=== PATIENT | female | born 1965 | race African-American/Black ===

== ENCOUNTER 2017-09-07 01:55 | Outpatient (CLI) | payer OTHER ==
--- NOTE | 2017-09-07 13:42 | MMO ---
BASELINE SCREENING MAMMOGRAPHY: DATE: 09/07/17. COMPARISON: None. HISTORY: Baseline screening study. FINDINGS: The patient's mammogram is interpreted with the assistance of computer-aided detection. The breast parenchyma is composed of scattered fibroglandular densities. There is a questionable focal asymmetry seen on left MLO imaging, superior on MLO imaging and middle depth. No concerning calcification seen. IMPRESSION: BI-RADS 0 - incomplete. Further imaging assessment advised. Focal asymmetry within the left breast on MLO imaging. Recommend left diagnostic mammogram and focus ed breast ultrasound as clinically indicated. POS: TONY
== END 2017-09-07 01:56 | disposition home or self-care (01) ==
LOC: SCSMAMMO 01:55
PROVIDERS: ATTEND Family Medicine
DX: Z12.31 Encounter for screening mammogram for malignant neoplasm of breast (principal); N64.89 Other specified disorders of breast
CPT/HCPCS: 77067; G0202

== ENCOUNTER 2017-09-14 10:00 | Outpatient (CLI) | payer OTHER ==
--- NOTE | 2017-09-14 11:47 | MMO ---
LEFT UNILATERAL DIAGNOSTIC MAMMOGRAM: HISTORY: This 52-year-old female returns for additional views of the left breast to evaluate an asymmetric den sity seen only on the left MLO projection. 90-degree mediolateral, repeat MLO, and focal MAG compression MLO views are performed. With these additional views, this asymmetric density of concern appears to compress out. No evidence for malignancy. IMPRESSION: BI-RADS category 2, benign findings. Asymmetric density of concern compresses out with additional im aging. Continued annual followup mammograms. BIRADS 2: Benign Finding(s) Routine annual screening mammography (for women over age 40) POS: RONNA
== END 2017-09-14 10:01 | disposition home or self-care (01) ==
LOC: MAMMO 10:00
PROVIDERS: ATTEND Family Medicine
DX: R92.8 Other abnormal and inconclusive findings on diagnostic imaging of breast (principal); N64.89 Other specified disorders of breast
CPT/HCPCS: G0206-LT

== ENCOUNTER 2018-09-05 11:35 | Outpatient (CLI) | payer OTHER ==
[2018-09-05 12:21] LABS: #Basophils 0.1 thou/uL (0.0-0.2); #Eosinphils 0.1 thou/uL (0.0-0.7); #Monocytes 0.6 thou/uL (0.11-0.59); #Neutrophils 4.2 thou/uL (1.40-6.50); %Basophils 0.8 % (0.0-1.0); %Lymphocytes 28.5 % (21.0-51.0); %Monocytes 9.2 % (0.0-10.0); %Neutrophils 60.6 % (42.0-75.0); Hemoglobin 14.1 g/dL (12.0-16.0); Mean Corpuscular HGB CONC 30.7 g/dL (32.0-36.0); Mean Corpuscular Hemoglobin 28.8 pg (27.0-31.0); Mean Corpuscular Volume 93.8 fL (78.0-98.0); Mean Platelet Volume 7.6 fL (7.4-10.4); Platelet Count 306 thou/uL (130-400); RBC Distribution Width 12.6 % (11.5-14.5); Red Blood Cell (RBC) Count 4.91 mill/uL (4.20-5.40); White Blood Cell (WBC) Count 6.9 thou/uL (4.8-10.8)
[2018-09-05 12:43] LABS: ALT (SGPT) 24 U/L (8-55); AST (SGOT) 17 U/L (5-34); Alkaline Phosphatase 103 U/L (40-150); Anion Gap 8 mmol/L (10-20); BUN (Urea Nitrogen) 10 mg/dL (9.8-20.1); Bilirubin, Total 0.8 mg/dL (0.2-1.2); Calc. Creatinine Clearance 0 mL/min (70-130); Calcium 9.7 mg/dL (7.8-10.44); Carbon Dioxide 29 mmol/L (22-29); Chloride 107 mmol/L (98-107); Estimated GFR-MDRD 89; Globulin 3.9 g/dL (2.4-3.5); Glucose 95 mg/dL (70-105); Potassium 4.2 mmol/L (3.5-5.1); Protein, Total 7.9 g/dL (6.0-8.3); Sodium 140 mmol/L (136-145)
--- NOTE | 2018-09-05 15:03 | EKG ---
Test Reason : Blood Pressure : / mmHG Vent. Rate : 067 BPM Atrial Rate : 067 BPM P-R Int : 144 ms QRS Dur : 076 ms QT Int : 374 ms P-R-T Axes : 063 068 009 degrees QTc Int : 395 ms Normal sinus rhythm Nonspecific T wave abnormality Abnormal ECG No previous ECGs available Confirmed by DR. Albaro PAREKH ([id number]) on 09/05/2018 3:02:50 PM Referred By: JEFERSON Confirmed By:DR. Albaro PAREKH
== END 2018-09-05 11:36 | disposition home or self-care (01) ==
LOC: LABBT 11:35
PROVIDERS: ATTEND Surgery
DX: Z01.818 Encounter for other preprocedural examination (principal); K62.0 Anal polyp
CPT/HCPCS: 80053; 85025; 93005; 93010

== ENCOUNTER 2018-09-07 07:14 | Day surgery (SDC) | payer OTHER ==
[2018-09-05 11:47] VITALS: BMI 28.8
[2018-09-07] MEDS ORDERED: Bacitracin Zinc Ointment 30 gm TUBE ONE (07:48)
[2018-09-07] MEDS ORDERED: Lidocaine 2% PF 5 ML VIAL ONE (07:48)
[2018-09-07] MEDS ORDERED: Bupivacaine HCl 0.5%/Epinephrine 1:200,000/PF 30 ml Vial ONE (07:48)
[2018-09-07] MEDS ORDERED: Fentanyl 100 MCG/2 ML VIAL ONE (07:50)
[2018-09-07] MEDS ORDERED: cefTRIAXone\\ROCEPHIN 1 GM VIAL ONE ×2 (07:54→08:00)
[2018-09-07] MEDS ORDERED: cefOXitin 2 GM VIAL ONE (08:00)
--- NOTE | 2018-09-07 08:55 | OP ---
DATE OF PROCEDURE: 09/07/2018 PREOPERATIVE DIAGNOSIS: Anal polyp. SURGEON: Joseph Curran M.D. PROCEDURE PERFORMED: Transanal excision of anal polyp and excision of tag. INDICATIONS: A 53-year-old female who had a recent colonoscopy and was found to have a polyp in the distal rectum, biopsied which was hyperplastic. She also had a skin tag that caused problems with hy giene. 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 There was a probable hypertroph ied anal papillae and a sentinel pile that were attached with this healed fissure. They were both ex cised. PROCEDURE IN DETAIL: After informed consent was obtained, the patient was taken to the operating anny m and given general endotracheal anesthesia. She was placed in lithotomy position and her perianal r egion was prepped and draped in usual fashion. She had undergone mechanical bowel prep at home. A 4 quadrant anal block was performed utilizing 0.5% Marcaine. Then the bivalve anal retractor was inse rted and the polyp was visualized posteriorly. There was not an active fissure present. The polyp w as grasped and excised utilizing the LigaSure. Then the skin tag was also excised with the LigaSure. Hemostasis assured. Gelfoam impregnated with bacitracin was inserted within the anal canal. No ot her abnormalities were seen. Sterile bandage applied. The patient tolerated the procedure well and was transferred to recovery in good condition. Sponge and needle count verified correct x2.
[2018-09-07] MEDS ORDERED: HYDROcodone/Acetaminophen 5/325 mg Tablet ONE (10:20)
[2018-09-07] MEDS ORDERED: Dexamethasone 20 MG/5 ML VIAL ONE (15:10)
[2018-09-07] MEDS ORDERED: Ketorolac Tromethamine 30 MG/ML VIAL ONE (15:10)
[2018-09-07] MEDS ORDERED: Ondansetron PF 4 MG/2 ML Vial ONE (15:10)
[2018-09-07] MEDS ORDERED: PROPOFOL 200 MG/20 ML VIAL ONE (15:10)
== END 2018-09-07 10:53 | disposition home or self-care (01) ==
LOC: SDC 07:14
PROVIDERS: ATTEND Surgery
PROC: 0DBQXZZ Excision of Anus, External Approach (ICD-10-PCS; principal; 2018-09-07)
PROC: 0DBQ7ZX Excision of Anus, Via Natural or Artificial Opening, Diagnostic (ICD-10-PCS; principal; 2018-09-07)
DX: K62.0 Anal polyp (principal); K64.4 Residual hemorrhoidal skin tags; E55.9 Vitamin D deficiency, unspecified; F17.210 Nicotine dependence, cigarettes, uncomplicated; Z79.899 Other long term (current) drug therapy
CPT/HCPCS: 88304; 88305; J0670; J0694; J0696; J1100; J1885; J2001; J2405; J2704; J3010

== ENCOUNTER 2019-01-18 10:11 | Outpatient (CLI) | payer OTHER ==
--- NOTE | 2019-01-19 11:57 | MMO ---
Bilateral MAMMO Bilat Screen DDI. CLINICAL HISTORY: Patient is 53 years old and is seen for screening. The patient has no family history of breast cancer. The patient has no personal history of cancer. VIEWS: The views performed were: bilateral craniocaudal and bilateral mediolateral oblique. FILMS COMPARED: The present examination has been compared to prior imaging studies performed at [facility] on 09/07/2017, and at [facility] on 09/14/2017. This study has been interpreted with the assistance of computer-aided detection. MAMMOGRAM FINDINGS: The breasts are heterogeneously dense, which could obscure a lesion on mammography. There are no suspicious masses, suspicious calcifications, or new areas of architectural distortion. IMPRESSION: THERE IS NO MAMMOGRAPHIC EVIDENCE OF MALIGNANCY. A ROUTINE FOLLOW-UP MAMMOGRAM IN 1 YEAR IS RECOMMENDED. ACR BI-RADS Category 1 - Negative MAMMOGRAPHY NOTE: 1. A negative mammogram report should not delay a biopsy if a dominant of clinically suspicious mass is present. 2. Approximately 10% to 15% of breast cancers are not detected by mammography. 3. Adenosis and dense breasts may obscure an underlying neoplasm.
== END 2019-01-18 10:12 | disposition home or self-care (01) ==
LOC: SCSMAMMO 10:11
PROVIDERS: ATTEND Family Medicine
DX: Z12.31 Encounter for screening mammogram for malignant neoplasm of breast (principal)
CPT/HCPCS: 77067

== ENCOUNTER 2019-06-21 15:35 | Inpatient (IN) | payer OTHER ==
[~2019-06-21 15:35] MED LIST: Iopamidol 370 76% 100 ML VIAL ONE
[2019-06-21] MEDS ORDERED: Nitroglycerin 2% Ointment 1 INCH/1 GM Packet ONE (15:53)
[2019-06-21] MEDS ORDERED: Morphine 4 MG/ML VIAL ONE ×2 (15:53→16:21)
[2019-06-21] MEDS ORDERED: Aspirin Chewable 81 MG TAB ONE (15:53)
[2019-06-21 16:02] LABS: #Basophils 0.2 thou/uL (0.0-0.2); #Eosinphils 0.1 thou/uL (0.0-0.7); #Lymphocytes 3.4 thou/uL (1.20-3.40); #Monocytes 0.8 thou/uL (0.11-0.59); #Neutrophils 3.3 thou/uL (1.40-6.50); %Basophils 2.8 % (0.0-1.0); %Eosinophils 0.8 % (0.0-10.0); %Lymphocytes 43.6 % (21.0-51.0); %Monocytes 10.5 % (0.0-10.0); %Neutrophils 42.3 % (42.0-75.0); Hemoglobin 15.2 g/dL (12.0-16.0); Mean Corpuscular HGB CONC 32.3 g/dL (32.0-36.0); Mean Corpuscular Hemoglobin 29.3 pg (27.0-31.0); Mean Corpuscular Volume 90.7 fL (78.0-98.0); Mean Platelet Volume 7.5 fL (7.4-10.4); Platelet Count 278 thou/uL (130-400); RBC Distribution Width 14.1 % (11.5-14.5); Red Blood Cell (RBC) Count 5.18 mill/uL (4.20-5.40); White Blood Cell (WBC) Count 7.9 thou/uL (4.8-10.8)
--- NOTE | 2019-06-21 16:32 | RAD ---
Chest one view HISTORY: Chest pain. FINDINGS: Cardiac silhouette is magnified by projection. Pulmonary vasculature is unremarkable. Media stinum is midline. No confluent airspace consolidation or evidence of pneumothorax. IMPRESSION: No active cardiopulmonary abnormalities are demonstrated.
--- NOTE | 2019-06-21 16:43 | CT ---
CT arteriogram abdomen with IV contrast and 3-D imaging CT arteriogram pelvis with IV contrast and 3-D imaging HISTORY: Chest and abdomen pain with radiation to back. FINDINGS: There is good contrast opacification of the pulmonary arteries and thoracic aorta with norm al branching of the great vessels. No evidence of dissection or leak. Normal caliber. Visceral arteries are patent. At least 2 codominant right renal arteries. Superiormost image shows lobular soft tissue density structure in the left upper anterior mediastinum favored to represent substernal extension of the thyroid gland. Tiny nonspecific subpleural nodules within each lung. Tiny hyperdensity in the dependent portion of the gallbladder lumen. IMPRESSION: No evidence of aortic dissection or other acute vascular abnormality. Cholelithiasis.
[2019-06-21 16:51] LABS: ALT (SGPT) 41 U/L (8-55); AST (SGOT) 26 U/L (5-34); Albumin 4.1 g/dL (3.5-5.0); Alkaline Phosphatase 122 U/L (40-150); Anion Gap 15 mmol/L (10-20); BUN (Urea Nitrogen) 13 mg/dL (9.8-20.1); Bilirubin, Total 0.8 mg/dL (0.2-1.2); Calc. Creatinine Clearance 0 mL/min (70-130); Carbon Dioxide 25 mmol/L (22-29); Chloride 104 mmol/L (98-107); Estimated GFR-MDRD 82; Globulin 3.8 g/dL (2.4-3.5); Glucose 103 mg/dL (70-105); Lipase 24 U/L (8-78); Potassium 3.8 mmol/L (3.5-5.1); Protein, Total 7.9 g/dL (6.0-8.3); Sodium 140 mmol/L (136-145)
[2019-06-21] MEDS ORDERED: Ketorolac Tromethamine 30 MG/ML VIAL ONE (17:11)
[2019-06-21] MEDS ORDERED: Fentanyl 100 MCG/2 ML VIAL ONE (18:06)
[2019-06-21] MEDS ORDERED: Nitroglycerin 50 MG/250 ML BOT 250 ML ONE (18:25)
[2019-06-21] MEDS ORDERED: Heparin 5,000 UNITS/ML VIAL ONE (18:25)
[2019-06-21 18:59] LABS: Troponin I 0.133 ng/mL (< 0.028)
[2019-06-21] MEDS ORDERED: Heparin 25,000 units/D5W 500 ML ONE (19:10)
[2019-06-21 20:13] VITALS: BMI 32.1
[2019-06-21] MEDS ORDERED: Nitroglycerin 50 MG/250 ML BOT 250 ML IVPB SCH (20:30)
[2019-06-21] MEDS ORDERED: Nitroglycerin 0.4 MG TAB (25 Tab Bottle) SL PRN (20:46)
[2019-06-21] MEDS ORDERED: Heparin 10,000 UNITS/ 10 ML VIAL SLOW IVP SCH (20:46)
[2019-06-21] MEDS ORDERED: Heparin 25,000 units/D5W 500 ML IVPB SCH (20:46)
[2019-06-21] MEDS ORDERED: Sodium Chloride 0.9% (PF) 10 ML VIAL FS PRN (21:01)
[2019-06-21 21:11] LABS: Hemoglobin 14.4 g/dL (12.0-16.0); Platelet Count 240 thou/uL (130-400)
[2019-06-21] MEDS: Morphine 2 MG/ML SYRINGE SLOW IVP PRN (21:37)
[2019-06-21] MEDS: Metoprolol Tartrate 25 MG TAB PO SCH (21:37)
[2019-06-21 22:31] LABS: Troponin I 1.257 ng/mL (< 0.028)
[2019-06-22] MEDS: Acetaminophen 325 MG TAB PO PRN (00:03)
[2019-06-22] MEDS: Morphine 2 MG/ML SYRINGE SLOW IVP PRN ×3 (00:03→11:37)
[2019-06-22 03:06] LABS: #Eosinphils 0.1 thou/uL (0.0-0.7); #Lymphocytes 3.3 thou/uL (1.20-3.40); #Monocytes 0.8 thou/uL (0.11-0.59); #Neutrophils 5.5 thou/uL (1.40-6.50); %Basophils 0.5 % (0.0-1.0); %Eosinophils 0.5 % (0.0-10.0); %Lymphocytes 33.8 % (21.0-51.0); %Monocytes 7.8 % (0.0-10.0); %Neutrophils 57.4 % (42.0-75.0); Hemoglobin 14.5 g/dL (12.0-16.0); Mean Corpuscular HGB CONC 34.3 g/dL (32.0-36.0); Mean Corpuscular Hemoglobin 31.2 pg (27.0-31.0); Mean Corpuscular Volume 91.1 fL (78.0-98.0); Mean Platelet Volume 7.8 fL (7.4-10.4); Platelet Count 251 thou/uL (130-400); RBC Distribution Width 13.7 % (11.5-14.5); Red Blood Cell (RBC) Count 4.64 mill/uL (4.20-5.40); White Blood Cell (WBC) Count 9.7 thou/uL (4.8-10.8)
[2019-06-22 03:32] LABS: Anion Gap 16 mmol/L (10-20); BUN (Urea Nitrogen) 13 mg/dL (9.8-20.1); Calc. Creatinine Clearance 126 mL/min (70-130); Calcium 9.5 mg/dL (7.8-10.44); Carbon Dioxide 21 mmol/L (22-29); Cardiac Risk 4.5 (Less than 4.5); Chloride 104 mmol/L (98-107); Cholesterol 213 mg/dl (< 200 Desired); Estimated GFR-MDRD Greater than 90; Glucose 99 mg/dL (70-105); HDL Cholesterol 47 mg/dL (>60 Neg Risk); LDL Cholesterol, Calculated 149 mg/dL; Sodium 137 mmol/L (136-145); Triglycerides 83 mg/dL (Less than 150)
[2019-06-22] MEDS ORDERED: Ondansetron PF 4 MG/2 ML Vial ONE (03:58)
--- NOTE | 2019-06-22 04:13 | HP ---
PRIMARY CARE PHYSICIAN: Chapincito Llamas MD CHIEF COMPLAINT: Chest and back pain. HISTORY OF PRESENT ILLNESS: Ms. Tenorio is a very pleasant 54-year-old female, who has a history of gastroesophageal reflux disease. She was in her usual state of health until today around 2:00 p.m. when she was at work. She said she was sitting in the break room at work and was getting ready to walk to go to the closet when she started feeling pain in her back shoulder and numbness in her left arm. She also began to feel nauseated. She says that she had her blood pressure checked and it was noted to be high. She went to the nurse there and by the time she got there, she started getting very sweaty and started to feel pressure in her chest and the back pain got worse and it was about 10/10. For this reason, she called EMS and they brought her to the [facility]. There, she was evaluated and found to have an EKG with some nonspecific ST-wave changes. However, a repeat EKG was done after she continued to have pain, which showed a new right bundle-branch block and for this reason, she was transferred to our facility to the ICU for further evaluation. Initial troponin has been negative. She denies any other symptoms such as PND or orthopnea. No lower extremity edema. No fevers, no chills. 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 REVIEW OF SYSTEMS: CONSTITUTIONAL: No fevers or chills. No night sweats. No weight loss. HEENT: No headaches. No dizziness. No visual changes. No sore throat. No rhinorrhea. No neck pain. No adenopathy. PULMONARY: No hemoptysis, no cough, no wheezing. CARDIOVASCULAR: As in the history of present illness. GASTROINTESTINAL: She did have some nausea but no vomiting. No abdominal pain. No change in bowels. GENITOURINARY: No urinary frequency or hematuria. No hesitancy. NEUROLOGIC: No focal weakness or numbness. No seizures. PSYCHIATRIC: No symptoms of anxiety or depression. SKIN AND INTEGUMENT: No skin changes. No rash. MUSCULOSKELETAL: No muscle pains, weakness, or joint pains. PAST MEDICAL HISTORY: Significant for gastroesophageal reflux disease as well as tendinitis. PAST SURGICAL HISTORY: She has had surgery on her right arm due to a fracture as well as colonoscopy with removal of a polyp. ALLERGIES: NO KNOWN DRUG ALLERGIES. SOCIAL HISTORY: She smokes about a half a pack a day for the last 30 years. She occasionally drinks beer on the weekends. She is , has 3 children. FAMILY HISTORY: Significant for mother who had leukemia. Brother had a stent placed and he is around 55 years old. Father had 3-vessel bypass surgery. CURRENT MEDICATIONS: Include 1. Vitamin D. 2. Omeprazole. PHYSICAL EXAMINATION: GENERAL: She is alert and oriented. She appears to be in no acute distress. VITAL SIGNS: Blood pressure was 130/76, heart rate 87, respiratory rate of 16, and she is afebrile. HEENT: Pupils are equal, round, and reactive. Extraocular muscles are intact. Her sclerae are anicteric. THROAT: There is no erythema, no exudates. NECK: No adenopathy. No bruits. LUNGS: Clear to auscultation. There is no wheezing, no rales, no rhonchi. CARDIOVASCULAR: She has a normal S1 and S2. There is no S3 or S4. No murmurs, clicks, or rubs. ABDOMEN: Obese, it is soft, it is nontender and nondistended. Positive for bowel sounds. No rebound or guarding. EXTREMITIES: There is no clubbing, no cyanosis, no edema. NEUROLOGIC: The exam is grossly nonfocal. SKIN AND INTEGUMENT: No skin changes. No rash. LABORATORY AND DIAGNOSTIC FINDINGS: On her EKG; the initial EKG was sinus rhythm with some T-wave inversion laterally and repeat EKG showed a new right bundle-branch block. Her initial troponin was 0.010, repeat is 0.13. Sodium 140, potassium 3.8, chloride is 104, CO2 is 25, BUN of 13, creatinine 0.87, glucose is 103. White blood cell count 7.9, hemoglobin 15.2, hematocrit is 47, platelet count is 278. She had a CT scan dissection protocol showing no evidence of dissection. There is still cardiopulmonary disease on chest x-ray and this is also by my reading, normal heart size and no infiltrates. ASSESSMENT: 1. This is a pleasant 54-year-old female, who is being admitted to the hospital for acute coronary syndrome. It is very concerning for possible [id number]-[id number] elevated myocardial infarction. She will be admitted to the ICU. We will continue the nitroglycerin drip as well as the heparin drip for the cardiovascular protocol, aspirin daily, as well as a low-dose beta brendon. Cardiology has already been notified from the ER and we will await further recommendations. 2. For gastroesophageal reflux disease, we will continue Protonix, but we will be giving this IV while she is in the ICU until we get further recommendations from Cardiology. Job ID: [id number]
[2019-06-22] MEDS ORDERED: Iopamidol 370 76% 50 ML VIAL FS ONE (07:24)
[2019-06-22] MEDS ORDERED: Iopamidol 370 76% 100 ML VIAL ONE (07:24)
--- NOTE | 2019-06-22 07:54 | PRG ---
DATE OF SERVICE: 06/22/2019 SUBJECTIVE: The patient is seen and examined at the bedside. She is feeling significantly better. She has some residual pain in her back, in the left shoulder/scapular area, but all front chest is clear from the pain. No nausea. No vomiting. OBJECTIVE: VITAL SIGNS: Blood pressure is 102/73, pulse is 65, respiratory rate is 14, O2 saturation is 100%. HEENT: Head is atraumatic and normocephalic. Eyes are PERRLA. Sclerae are nonicteric. Oral mucosa is moist. NECK: Supple. LUNGS: Clear. HEART: S1, S2 normal. No S3. No S4. ABDOMEN: Soft, mildly distended, nontender. EXTREMITIES: No clubbing, cyanosis, or edema. NEUROLOGIC: She is alert and oriented x4. There is no any motor or sensory deficits present. Cranial nerves are intact. LABORATORY DATA: Showed a white count of 9.7, hemoglobin 14.5, hematocrit 42.2, platelet count is 251,000. Normal electrolytes; CO2 of 21, BUN 13, creatinine 0.77, glucose 99, calcium 9.5. Troponin 3 sets; 1st one is 0.01, 2nd one 0.13, 3rd one 1.257. Triglycerides 83, cholesterol 213, LDL 149, HDL 47. IMPRESSION: 1. Type 2 myocardial infarction. 2. Esophageal reflux disease. PLAN: The patient is getting stabilized. Her blood pressure is improved. She is on heparin and a nitroglycerin drip. Cardiology is consulted. She is on aspirin and beta brendon and we will continue current regimen. We will get an echocardiogram. Job ID: [id number]
[2019-06-22] MEDS ORDERED: Lidocaine 1% (PF) 30 ML VIAL ONE (08:41)
[2019-06-22 08:42] LABS: CKMB 134.2 ng/mL (0-6.6)
[2019-06-22] MEDS ORDERED: Nitroglycerin 100MG/250ML BOT 250 ML ONE (08:43)
[2019-06-22] MEDS ORDERED: Verapamil 5 MG/2 ML VIAL ONE (08:43)
[2019-06-22] MEDS ORDERED: Heparin 10,000 UNITS/1 ML VIAL ONE (08:43)
[2019-06-22] MEDS ORDERED: Aspirin 325 mg Enteric Coated Tablet PO SCH (09:00)
[2019-06-22] MEDS ORDERED: Midazolam HCl 2 mg/2 ml Vial ONE ×2 (09:25→09:49)
[2019-06-22] MEDS ORDERED: TICAGRELOR 90 MG TABLET ONE (10:40)
[2019-06-22] MEDS ORDERED: traMADol HCl 50 MG TAB PO PRN (10:55)
[2019-06-22] MEDS: Metoprolol Tartrate 25 MG TAB PO SCH ×2 (11:38→20:19)
[2019-06-22] MEDS: Pantoprazole 40 MG VIAL IVP SCH (11:39)
[2019-06-22] MEDS: Ondansetron PF 4 MG/2 ML Vial SLOW IVP PRN (15:58)
--- NOTE | 2019-06-22 16:19 | CON ---
DATE OF CONSULTATION: INDICATION FOR CONSULTATION AND HISTORY OF PRESENT ILLNESS: This is a 54-year-old female, who has suffered a jes-[id number]-[id number] elevation myocardial infarction. She has a history of tobacco abuse. Yesterday morning, she got up. She was having some back pain. She went to work. She continued to have pain in interscapular area, which radiated some to the left arm. She was seen in the emergency room, was noted to have some nonspecific ST-segment changes and developed a right bundle-branch block. She was given morphine and nitroglycerin. The pain improved a little bit, then she was given heparin, and then the pain improved further, but she still says she has had some interscapular pain at this time. She describes as being a 4/10 still, previously was 8 to 9/10 when she was in the emergency room. Her troponin-I originally was negative in the emergency room at 0.01, increased up to 0.133, and then yesterday evening was 1.257, and then this morning troponin-I is 6.9. Her LDL is 149. She has a history of tobacco abuse. She smoked half-a-pack a day for about 24 years. She has no diabetes. She denies any hypertension. She said she did not have hypercholesterolemia. However, LDL level was elevated at 149. She has no early family history of heart disease. PAST MEDICAL HISTORY: Significant for some right arm elbow surgery at age 13. She has no other significant histories. SOCIAL HISTORY: She is . She has children, who are alive and well. She continues to smoke. 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 ALLERGIES: NONE. MEDICATIONS: She says she takes medications for her pain in her arm and also for cramping in her right hand. She takes vitamin D and she also takes medications for reflux. REVIEW OF SYSTEMS: A 12-point review of systems is unremarkable except for the pain, that is noted in her back. She has no further arm pain and she says she has gastroesophageal reflux disease. She complains of right arm pain with some cramping. She has been given medicines to help relieve the cramping and the pain in her right arm, which she takes on as needed basis. PHYSICAL EXAMINATION: GENERAL: A well-developed, well-nourished female, who does not appear to be in any acute distress at this time. Her is at the bedside. They are discussing whether or not to proceed with cardiac catheterization. VITAL SIGNS: Her blood pressure is 107/69, heart rate is 67 and regular, O2 saturation is 100%, respiratory rate is 20. HEENT: Head to be normocephalic and atraumatic. Carotid pulses are present. There are no bruits. There is no JVD. The thyroid is not enlarged. Oral mucosa is pink and moist. CHEST: Clear to auscultation without rales, rhonchi, or wheezing. CARDIOVASCULAR: Regular rate and rhythm with normal S1, S2. There is no S3 or S4. There are no significant murmurs, heaves, thrills, bruits, or rubs. ABDOMEN: Soft and nontender. Slightly obese. No palpable tenderness noted. No masses are noted. EXTREMITIES: No clubbing, cyanosis, or edema. Pedal pulses are present. Radial pulses are present. NEUROLOGIC: She appears to be fully intact with normal strength and tone. There are no abnormalities otherwise noted. SKIN: Warm and dry. PSYCHOSOCIAL: She appears to be within normal limits. She does appear to be somewhat nervous and concerned about possible cardiac catheterization. LABORATORY AND DIAGNOSTIC DATA: Sodium of 137, potassium was 4, BUN was 13, creatinine was 0.77, blood sugar was 99. Troponin-I as noted above. Her CK actually was somewhat elevated, which is of uncertain etiology. It was 239, but she denies any significant earlier physical exertion in the last few days and has not been out in the heat too much. I am not quite sure why her CK is 239. Her triglycerides were 83, her LDL was 149, HDL was 47. Her WBC was 9.7, platelet count was 251,000, hemoglobin was 14.5. Her EKG shows at this morning a right bundle-branch block with no other acute changes. She has some nonspecific changes, but no acute ST-segment elevation has been noted. IMPRESSION AND PLAN: This is a 54-year-old female with a history of tobacco abuse and interscapular pain radiating to the left arm and positive enzymes compatible with a qce-QF-cmrcppl elevation myocardial infarction. I have advised her to undergo a cardiac catheterization. I have explained the procedure risks to both she and her to include bleeding, infection, possibility of myocardial infarction, CVA, renal insufficiency, allergic contrast reaction, and the possibility of . She understands the procedure, and we will discuss with her whether or not she wishes to proceed and as so we will plan for cardiac catheterization today. Job ID: [id number]
[2019-06-22] MEDS: TICAGRELOR 90 MG TABLET PO SCH (20:19)
[2019-06-22] MEDS: Atorvastatin Calcium 40 MG TAB PO SCH (20:19)
[2019-06-22] MEDS ORDERED: TICAGRELOR 90 MG TABLET PO SCH (21:00)
[2019-06-22] MEDS ORDERED: Atorvastatin Calcium 40 MG TAB PO SCH (21:00)
[2019-06-23 05:22] LABS: #Lymphocytes 2.5 thou/uL (1.20-3.40); #Monocytes 1.4 thou/uL (0.11-0.59); #Neutrophils 7.9 thou/uL (1.40-6.50); %Basophils 0.3 % (0.0-1.0); %Eosinophils 0.2 % (0.0-10.0); %Neutrophils 66.5 % (42.0-75.0); Hemoglobin 14.5 g/dL (12.0-16.0); Mean Corpuscular HGB CONC 33.7 g/dL (32.0-36.0); Mean Corpuscular Hemoglobin 30.3 pg (27.0-31.0); Mean Platelet Volume 7.9 fL (7.4-10.4); Platelet Count 230 thou/uL (130-400); RBC Distribution Width 13.6 % (11.5-14.5); Red Blood Cell (RBC) Count 4.78 mill/uL (4.20-5.40); White Blood Cell (WBC) Count 11.9 thou/uL (4.8-10.8)
[2019-06-23 05:43] LABS: ALT (SGPT) 45 U/L (8-55); AST (SGOT) 97 U/L (5-34); Albumin 3.8 g/dL (3.5-5.0); Alkaline Phosphatase 96 U/L (40-150); Anion Gap 12 mmol/L (10-20); BUN (Urea Nitrogen) 8 mg/dL (9.8-20.1); Bilirubin, Total 1.4 mg/dL (0.2-1.2); Calc. Creatinine Clearance 120 mL/min (70-130); Calcium 9.6 mg/dL (7.8-10.44); Carbon Dioxide 24 mmol/L (22-29); Chloride 104 mmol/L (98-107); Estimated GFR-MDRD 89; Globulin 3.6 g/dL (2.4-3.5); Glucose 98 mg/dL (70-105); Protein, Total 7.4 g/dL (6.0-8.3); Sodium 136 mmol/L (136-145)
[2019-06-23] MEDS: Acetaminophen 325 MG TAB PO PRN (06:38)
[2019-06-23] MEDS: Aspirin 81 mg Enteric Coated Tablet PO SCH (08:07)
[2019-06-23] MEDS: Pantoprazole 40 MG VIAL IVP SCH (08:07)
[2019-06-23] MEDS ORDERED: Aspirin Chewable 81 MG TAB PO SCH ×2 (09:00)
[2019-06-23] MEDS: TICAGRELOR 90 MG TABLET PO SCH ×2 (09:08→20:09)
[2019-06-23] MEDS: Metoprolol Tartrate 25 MG TAB PO SCH ×2 (09:18→20:09)
--- NOTE | 2019-06-23 11:46 | PRG ---
DATE OF SERVICE: 06/23/2019 SUBJECTIVE: The patient is seen and examined at bedside. She does not have much complaints to offer. Her pain in the back is almost completely gone. OBJECTIVE: VITAL SIGNS: Blood pressure is 88/54, pulse is 83, MAP is 65, respiratory rate is 12, and O2 saturation is 94%. HEENT: Her oral mucosa is moist. NECK: Supple. LUNGS: Clear. HEART: S1, S2, somewhat irregular. No S3. No S4. No any murmur. ABDOMEN: Soft, nontender, nondistended. EXTREMITIES: No clubbing, cyanosis, or edema. NEUROLOGIC: She is alert and oriented x4. There is no any motor or sensory deficits present. Cranial nerves are intact. LABORATORY DATA: Labs showed white count of 11.9, hematocrit 14.5, platelet count is 230,000. Normal electrolytes. BUN of 8, creatinine 0.81. Troponin I 0.133, 0.257 and 6.994 with CK-MB fraction of 134.2. Albumin 3.8, globulin 3.6. IMPRESSION: 1. Type 2 myocardial infarction. 2. Esophageal reflux disease. DISCUSSION: Early in the morning today she went into different rhythm. She started having some irregular heartbeat and according to her electrocardiogram, there is a questionable second degree AV block. This was discussed with focused factory manager, Dr. Rincon who is covering for Dr. Jackson and he will make decision whether this is a real type 2 AV block or this was just misread by me. For now, her blood pressure is running on the lower side, but clinically she is stable. She is not tachycardic. We will continue her statin and aspirin along with Brilinta and beta brendon. She is going to make decision whether she will have cardiac catheterization, which was offered to her by Dr. Jackson yesterday. Job ID: [id number]
[2019-06-23] MEDS: Atorvastatin Calcium 40 MG TAB PO SCH (20:09)
[2019-06-24] MEDS: Pantoprazole 40 MG VIAL IVP SCH (10:00)
[2019-06-24] MEDS: TICAGRELOR 90 MG TABLET PO SCH ×2 (10:00→21:55)
[2019-06-24] MEDS: Metoprolol Tartrate 25 MG TAB PO SCH ×2 (10:00→21:56)
[2019-06-24] MEDS: Aspirin 81 mg Enteric Coated Tablet PO SCH (10:00)
[2019-06-24] MEDS: Morphine 2 MG/ML SYRINGE SLOW IVP PRN (11:38)
[2019-06-24] MEDS ORDERED: DOPamine 400 MG/D5W 250 ML 250 ML ONE (12:00)
[2019-06-24] MEDS: Sodium Chloride 0.9% 1,000 ML IV SCH (12:47)
[2019-06-24] MEDS ORDERED: Polyethylene Glycol 3350 17 GM Packet PO SCH (14:30)
--- NOTE | 2019-06-24 16:25 | PDOC.HOSPP ---
- Subjective Encounter Date: 06/24/19 Encounter Time: 16:23 Subjective: Abd pain with constipation, no longer having chest pain - Objective Vital Signs & Weight: Vital Signs (12 hours) Temp Pulse Pulse BP BP Pulse Ox Pulse Ox 06/24/19 16:00 98 F 06/24/19 12:00 98 F 06/24/19 10:37 66 89 108/65 108/71 93 L 06/24/19 10:00 98.7 F 06/24/19 08:00 99.7 F H 97 06/24/19 07:00 99.7 F H Pulse Ox 06/24/19 16:00 06/24/19 12:00 06/24/19 10:37 95 06/24/19 10:00 06/24/19 08:00 06/24/19 07:00 Weight Weight 206 lb 12.697 oz Most Recent Monitor Data Heart Rate from ECG 93 NIBP 112/82 NIBP BP-Mean 92 Respiration from ECG 17 SpO2 96 I&O: 06/23/19 06/24/19 06/25/19 06:59 06:59 06:59 Intake Total 960 1075 440 Output Total 3000 1850 0 Balance -2040 -775 440 Result Diagrams: 06/23/19 05:00 06/23/19 05:00 Hospitalist ROS - Medication Medications: Active Medications Generic Name Dose Route Start Last Admin Trade Name Freq PRN Reason Stop Dose Admin Acetaminophen 650 mg 06/21/19 20:46 06/23/19 06:38 Tylenol PO 650 mg Q4H PRN Administration Headache/Fever/Mild Pain (1-3) Aspirin 81 mg 06/23/19 09:00 06/24/19 10:00 Ecotrin PO 81 mg DAILY FRANCIS Administration Atorvastatin Calcium 40 mg 06/22/19 21:00 06/23/19 20:09 Lipitor PO 40 mg HS FRANCIS Administration Sodium Chloride 1,000 mls @ 100 mls/hr 06/24/19 12:45 06/24/19 12:47 Normal Saline 0.9% IV 1,000 mls .Q10H FRANCIS Administration Metoprolol Tartrate 12.5 mg 06/21/19 21:00 06/24/19 10:00 Lopressor PO 12.5 mg BID FRANCIS Administration Morphine Sulfate 2 mg 06/21/19 20:46 06/24/19 11:38 Morphine SLOW IVP 2 mg Q5MIN PRN Administration Chest Pain Ondansetron HCl 4 mg 06/22/19 03:59 06/22/19 15:58 Zofran SLOW IVP 4 mg Q6H PRN Administration Nausea/Vomiting Polyethylene Glycol 17 gm 06/24/19 14:30 06/24/19 15:34 Miralax PO 06/24/19 16:30 17 gm NOW FRANCIS Administration Ticagrelor 90 mg 06/22/19 21:00 06/24/19 10:00 Brilinta PO 90 mg BID FRANCIS Administration - Exam General Appearance: awake alert Eye: PERRL, anicteric sclera ENT: normocephalic atraumatic, no oropharyngeal lesions Neck: supple, symmetric, no JVD, no thyromegaly Heart: RRR, no murmur, no gallops, no rubs Respiratory: CTAB, no wheezes, no rales, no ronchi Gastrointestinal: soft, non-tender, non-distended, normal bowel sounds Extremities: no cyanosis, no clubbing, no edema Hosp A/P (1) NSTEMI (non-ST elevated myocardial infarction) Code(s): I21.4 - NON-ST ELEVATION (NSTEMI) MYOCARDIAL INFARCTION Status: Acute Plan: Patient initially treated with aspirin and heparin gtt Patient now S/P Cath with CAD, stent X 1 to mid LAD with 90% lesion Aspirin, statin and Brillinta Hypotension : Avoid narcotics Constipation: Miralax (2) CAD (coronary artery disease) Code(s): I25.10 - ATHSCL HEART DISEASE OF [place] CORONARY ARTERY W/O ANG PCTRS Status: Acute (3) S/P arterial stent Code(s): Z95.9 - PRESENCE OF CARDIAC AND VASCULAR IMPLANT AND GRAFT, UNSP Status: Acute (4) Constipation Code(s): K59.00 - CONSTIPATION, UNSPECIFIED Status: Acute
[2019-06-24] MEDS ORDERED: DOPamine 400 MG/D5W 250 ML 250 ML IVPB SCH (16:30)
[2019-06-24] MEDS: Ondansetron PF 4 MG/2 ML Vial SLOW IVP PRN (16:55)
[2019-06-24] MEDS ORDERED: Mag-Al 1200 mg/1200 mg/30 ML UDCUP PO PRN (19:47)
[2019-06-24] MEDS ORDERED: Lidocaine 1% (PF) 30 ML VIAL ONE (20:38)
[2019-06-24] MEDS ORDERED: Midazolam HCl 2 mg/2 ml Vial ONE (21:04)
--- NOTE | 2019-06-24 21:51 | CON ---
DATE OF CONSULTATION: HISTORY OF PRESENT ILLNESS: Robina Tenorio is a 54-year-old female, who underwent emergent cardiac catheterization on the . Told she was stable yesterday. She is tentatively scheduled to transfer out of the Critical Care Unit. I have to be standing outside of the room when she developed complete heart block. She was a little confused, but had a blood pressure in the 90s. Her was asked to leave the room. External pacing pads were placed. Dopamine was obtained and she was started on a low-dose dopamine. Approximately 10 minutes later, the ball maker arrived. I turned care over to him. PHYSICAL EXAMINATION: VITAL SIGNS: Blood pressure is 119/67, heart rate 95, respiratory rate is 22. GENERAL: She is in no distress. She is lying flat in bed. LUNGS: Clear. HEART: Regular rhythm. S1 and S2 are normal. ABDOMEN: Soft and nontender. EXTREMITIES: Without edema. LABORATORY DATA: White count is 11.9, hemoglobin 14.5 yesterday. No electrolytes today. IMPRESSION: Complete heart block after myocardial infarction and percutaneous coronary intervention. There is no clinical evidence of congestive heart failure at this time. We will be happy to follow the other physicians while she is in the Critical Care Unit. CRITICAL CARE TIME: 30 minutes. Job ID: [id number]
[2019-06-24] MEDS: Atorvastatin Calcium 40 MG TAB PO SCH (21:55)
[2019-06-25] MEDS: Sodium Chloride 0.9% 1,000 ML IV SCH ×3 (04:42→19:10)
[2019-06-25 06:07] LABS: Anion Gap 11 mmol/L (10-20); BUN (Urea Nitrogen) 13 mg/dL (9.8-20.1); Calc. Creatinine Clearance 129 mL/min (70-130); Calcium 9.2 mg/dL (7.8-10.44); Carbon Dioxide 23 mmol/L (22-29); Chloride 106 mmol/L (98-107); Estimated GFR-MDRD Greater than 90; Glucose 90 mg/dL (70-105); Potassium 3.7 mmol/L (3.5-5.1); Sodium 136 mmol/L (136-145)
[2019-06-25 06:19] LABS: #Basophils 0.1 thou/uL (0.0-0.2); #Lymphocytes 2.1 thou/uL (1.20-3.40); #Monocytes 1.1 thou/uL (0.11-0.59); #Neutrophils 6.3 thou/uL (1.40-6.50); %Basophils 0.5 % (0.0-1.0); %Eosinophils 0.1 % (0.0-10.0); %Lymphocytes 21.7 % (21.0-51.0); %Monocytes 11.5 % (0.0-10.0); %Neutrophils 66.1 % (42.0-75.0); Hemoglobin 13.1 g/dL (12.0-16.0); Mean Corpuscular HGB CONC 33.5 g/dL (32.0-36.0); Mean Corpuscular Hemoglobin 30.6 pg (27.0-31.0); Mean Corpuscular Volume 91.5 fL (78.0-98.0); Mean Platelet Volume 8.3 fL (7.4-10.4); Platelet Count 208 thou/uL (130-400); RBC Distribution Width 13.3 % (11.5-14.5); Red Blood Cell (RBC) Count 4.28 mill/uL (4.20-5.40); White Blood Cell (WBC) Count 9.5 thou/uL (4.8-10.8)
[2019-06-25] MEDS: Acetaminophen 325 MG TAB PO PRN (07:26)
[2019-06-25] MEDS: Aspirin 81 mg Enteric Coated Tablet PO SCH (09:30)
[2019-06-25] MEDS: Polyethylene Glycol 3350 17 GM Packet PO SCH (09:34)
[2019-06-25] MEDS: TICAGRELOR 90 MG TABLET PO SCH ×2 (09:50→21:59)
[2019-06-25] MEDS ORDERED: DOPamine/D5W 400 mg/250 ml PREMIX ONE (11:11)
[2019-06-25] MEDS ORDERED: Atropine Sulfate 1 mg/10 ml Syringe ONE (11:11)
--- NOTE | 2019-06-25 12:37 | PRG ---
DATE OF SERVICE: 06/25/2019 SUBJECTIVE: The patient remains in the CCU. She has a transvenous pacer in the right groin and is continuing to pacer 100%. OBJECTIVE: VITAL SIGNS: Her pulse is 70, blood pressure 89/59, temperature 97.7, respiratory rate 24, and O2 saturation 95%. HEENT: Unremarkable. NECK: No adenopathy or JVD. CARDIAC: S1 and S2 paced. LUNGS: Clear. ABDOMEN: Soft and nontender. EXTREMITIES: No edema. LABORATORY DATA: White blood cell count 9.5, hematocrit 39.1, and platelet count 208. Sodium 136, potassium 3.7, BUN 13, creatinine 0.7, and glucose 90. ASSESSMENT: Complete heart block requiring continuous pacing. PLAN: It looks like she will probably need a pacemaker. Her beta-brendon was stopped yesterday. We will follow. Job ID: [id number]
--- NOTE | 2019-06-25 16:43 | PDOC.HOSPP ---
- Subjective Encounter Date: 06/25/19 Encounter Time: 16:42 Subjective: Doing well, no chest pain, continued constipation - Objective Vital Signs & Weight: Vital Signs (12 hours) Temp Pulse Ox 06/25/19 16:00 98.1 F 06/25/19 11:00 97.7 F 06/25/19 08:00 97.8 F 95 06/25/19 05:00 97.7 F Weight Weight 212 lb 4.882 oz Most Recent Monitor Data Heart Rate from ECG 67 NIBP 105/67 NIBP BP-Mean 79 Respiration from ECG 26 SpO2 95 I&O: 06/24/19 06/25/19 06/26/19 06:59 06:59 06:59 Intake Total 1075 2992 355 Output Total 1850 750 2 Balance -125 2 353 Result Diagrams: 06/25/19 04:53 06/25/19 04:53 Hospitalist ROS - Medication Medications: Active Medications Generic Name Dose Route Start Last Admin Trade Name Freq PRN Reason Stop Dose Admin Acetaminophen 650 mg 06/21/19 20:46 06/25/19 07:26 Tylenol PO 650 mg Q4H PRN Administration Headache/Fever/Mild Pain (1-3) Aspirin 81 mg 06/23/19 09:00 06/25/19 09:30 Ecotrin PO 81 mg DAILY FRANCIS Administration Atorvastatin Calcium 40 mg 06/22/19 21:00 06/24/19 21:55 Lipitor PO 40 mg HS FRANCIS Administration Sodium Chloride 1,000 mls @ 100 mls/hr 06/24/19 12:45 06/25/19 09:34 Normal Saline 0.9% IV Not Given .Q10H FRANCIS Morphine Sulfate 2 mg 06/21/19 20:46 06/24/19 11:38 Morphine SLOW IVP 2 mg Q5MIN PRN Administration Chest Pain Ondansetron HCl 4 mg 06/22/19 03:59 06/24/19 16:55 Zofran SLOW IVP 4 mg Q6H PRN Administration Nausea/Vomiting Pantoprazole Sodium 40 mg 06/25/19 09:00 06/25/19 09:31 Protonix PO 40 mg DAILY FRANCIS Administration Polyethylene Glycol 17 gm 06/25/19 09:00 06/25/19 09:34 Miralax PO 17 gm DAILY FRANCIS Administration Ticagrelor 90 mg 06/22/19 21:00 06/25/19 09:50 Brilinta PO 90 mg BID FRANCIS Administration - Exam General Appearance: awake alert Eye: PERRL, anicteric sclera ENT: normocephalic atraumatic, no oropharyngeal lesions Neck: supple, symmetric, no JVD, no thyromegaly Heart: RRR, no murmur, no gallops Respiratory: CTAB, no wheezes, no rales, no ronchi Gastrointestinal: non-tender, normal bowel sounds, distended Extremities: no cyanosis, no clubbing, no edema Skin: normal turgor, no lesions, no rashes Neurological: CN's grossly intact, normal sensation to touch, no weakness, no focal deficits, no new deficit Hosp A/P (1) NSTEMI (non-ST elevated myocardial infarction) Code(s): I21.4 - NON-ST ELEVATION (NSTEMI) MYOCARDIAL INFARCTION Status: Acute (2) CAD (coronary artery disease) Code(s): I25.10 - ATHSCL HEART DISEASE OF [place] CORONARY ARTERY W/O ANG PCTRS Status: Acute (3) S/P arterial stent Code(s): Z95.9 - PRESENCE OF CARDIAC AND VASCULAR IMPLANT AND GRAFT, UNSP Status: Acute (4) Constipation Code(s): K59.00 - CONSTIPATION, UNSPECIFIED Status: Acute - Plan DVT proph w/lovenox NSTEMI CAD --S/P Heaprin gtt --S/P Cath andstent X 1 to LAD --Now on aspirin statin and Brillinta Constipation: --Miralax Comeplete AV block? --temporary trans cutaneous pacemaker
[2019-06-25] MEDS: Atorvastatin Calcium 40 MG TAB PO SCH (21:59)
[2019-06-25] MEDS: Enoxaparin Sodium 40 MG/0.4 ML SYRINGE SC SCH (21:59)
[2019-06-26] MEDS: Sodium Chloride 0.9% 1,000 ML IV SCH ×3 (06:24→22:27)
--- NOTE | 2019-06-26 09:20 | PDOC.CPN ---
- Subjective Date: 06/26/19 Time: :18 - Objective Allergies/Adverse Reactions: Allergies Allergy/AdvReac Type Severity Reaction Status Date / Time No Known Allergies Allergy Verified 09/05/18 11:47 Visit Medications: Current Medications Acetaminophen (Tylenol) 650 mg PO Q4H PRN PRN Reason: Headache/Fever/Mild Pain (1-3) Last Admin: 06/25/19 07:26 Dose: 650 mg Al Hydroxide/Mg Hydroxide (Maalox) 30 ml PO Q6H PRN PRN Reason: Indigestion Aspirin (Ecotrin) 81 mg PO DAILY [facility] Last Admin: 06/25/19 09:30 Dose: 81 mg Atorvastatin Calcium (Lipitor) 40 mg PO HS [facility] Last Admin: 06/25/19 21:59 Dose: 40 mg Enoxaparin Sodium (Lovenox) 40 mg SC 2100 [facility] Last Admin: 06/25/19 21:59 Dose: 40 mg Sodium Chloride (Normal Saline 0.9%) 1,000 mls @ 100 mls/hr IV .Q10H [facility] Last Admin: 06/26/19 06:24 Dose: 1,000 mls Morphine Sulfate (Morphine) 2 mg SLOW IVP Q5MIN PRN PRN Reason: Chest Pain Last Admin: 06/24/19 11:38 Dose: 2 mg Nitroglycerin (Nitrostat) 0.4 mg SL Q5MIN PRN PRN Reason: Chest Pain Ondansetron HCl (Zofran) 4 mg SLOW IVP Q6H PRN PRN Reason: Nausea/Vomiting Last Admin: 06/24/19 16:55 Dose: 4 mg Pantoprazole Sodium (Protonix) 40 mg PO DAILY [facility] Last Admin: 06/25/19 09:31 Dose: 40 mg Polyethylene Glycol (Miralax) 17 gm PO DAILY [facility] Last Admin: 06/25/19 09:34 Dose: 17 gm Sodium Chloride (Normal Saline Pf) 10 ml FS PRN PRN PRN Reason: RECONSTITUTION Sodium Chloride (Flush - Normal Saline) 10 ml IVF Q12HR [facility] Sodium Chloride (Flush - Normal Saline) 10 ml IVF PRN PRN PRN Reason: Saline Flush Ticagrelor (Brilinta) 90 mg PO BID [facility] Last Admin: 06/25/19 21:59 Dose: 90 mg Tramadol HCl (Ultram) 50 mg PO Q6H PRN PRN Reason: Moderate Pain (4-7) Vital Signs & Weight: Vital Signs Temp 06/26/19 04:00 98.9 F 06/26/19 00:00 100.3 F H Weight 218 lb 14.704 oz - Physical Exam Neck: supple neck, no JVD/HJR, no lymphadenopathy Cardiac: other (pacing 100%. Underlying CHB.) Lungs: clear to auscultation, no wheeze, rales, rhonchi Neuro: grossly intact Abdomen: unremarkable Musculoskeletal: normal range of motion - Labs Result Diagrams: 06/25/19 04:53 06/25/19 04:53 Troponin/CKMB CK-MB (CK-2) 134.2 ng/mL (0-6.6) H* 06/22/19 02:54 Troponin I 6.994 ng/mL (< 0.028) H* 06/22/19 02:54 - Assessment/Plan Assessment/Plan: 1. CHB. Temporary pacemaker placed in right CFV. pacing 100%. Whe the rate is decreased then the CHB is obvious. Plan for dual chamber pacemaker this AM.procedure and risks explained to pt. : bleeding infection. pneumo/hemothorax, tamponade. Pt. agrees to proceed. 2. CAD: NSTEMI: s/p ptca/stent to the LAD. Stable. On Brilinta. 3. Tobacco abuse. Told to absolutely stop.
[2019-06-26] MEDS: Aspirin 81 mg Enteric Coated Tablet PO SCH (09:41)
[2019-06-26] MEDS: Polyethylene Glycol 3350 17 GM Packet PO SCH (09:42)
[2019-06-26] MEDS: TICAGRELOR 90 MG TABLET PO SCH ×2 (09:42→22:24)
[2019-06-26] MEDS ORDERED: Gentamicin 80 MG/2 ML VIAL ONE (09:52)
[2019-06-26] MEDS ORDERED: Lidocaine 1% (PF) 30 ML VIAL ONE (09:56)
[2019-06-26] MEDS ORDERED: Midazolam HCl 2 mg/2 ml Vial ONE (10:44)
[2019-06-26] MEDS ORDERED: CEFAZOLIN 1 GM VIAL ONE (10:44)
[2019-06-26] MEDS ORDERED: Iopamidol 370 76% 50 ML VIAL FS ONE (14:03)
--- NOTE | 2019-06-26 15:39 | PDOC.HOSPP ---
- Subjective Encounter Date: 06/26/19 Encounter Time: 15:36 Subjective: S/P pacemaker placement, sleepy, very constipated - Objective Vital Signs & Weight: Vital Signs (12 hours) Temp Pulse Ox 06/26/19 13:00 98.2 F 06/26/19 08:00 95 06/26/19 07:00 98.7 F 06/26/19 04:00 98.9 F Weight Weight 218 lb 14.704 oz Most Recent Monitor Data Heart Rate from ECG 78 NIBP 119/79 NIBP BP-Mean 92 Respiration from ECG 14 SpO2 95 I&O: 06/25/19 06/26/19 06/27/19 06:59 06:59 06:59 Intake Total 2992 2782 443 Output Total 750 2 375 Balance 2242 2780 68 Result Diagrams: 06/25/19 04:53 06/25/19 04:53 Hospitalist ROS - Medication Medications: Active Medications Generic Name Dose Route Start Last Admin Trade Name Freq PRN Reason Stop Dose Admin Acetaminophen 650 mg 06/21/19 20:46 06/25/19 07:26 Tylenol PO 650 mg Q4H PRN Administration Headache/Fever/Mild Pain (1-3) Aspirin 81 mg 06/23/19 09:00 06/26/19 09:41 Ecotrin PO Not Given DAILY FRANCIS Atorvastatin Calcium 40 mg 06/22/19 21:00 06/25/19 21:59 Lipitor PO 40 mg HS FRANCIS Administration Enoxaparin Sodium 40 mg 06/25/19 21:00 06/25/19 21:59 Lovenox SC 40 mg 2100 FR[facility] Administration Sodium Chloride 1,000 mls @ 100 mls/hr 06/24/19 12:45 06/26/19 14:05 Normal Saline 0.9% IV 1,000 mls .Q10H FRANCIS Administration Morphine Sulfate 2 mg 06/21/19 20:46 06/24/19 11:38 Morphine SLOW IVP 2 mg Q5MIN PRN Administration Chest Pain Ondansetron HCl 4 mg 06/22/19 03:59 06/24/19 16:55 Zofran SLOW IVP 4 mg Q6H PRN Administration Nausea/Vomiting Pantoprazole Sodium 40 mg 06/25/19 09:00 06/26/19 09:42 Protonix PO Not Given DAILY FRANCIS Polyethylene Glycol 17 gm 06/25/19 09:00 06/26/19 09:42 Miralax PO Not Given DAILY [facility] Ticagrelor 90 mg 06/22/19 21:00 06/26/19 09:42 Brilinta PO Not Given BID [facility] Tramadol HCl 50 mg 06/22/19 10:55 06/26/19 13:03 Ultram PO 50 mg Q6H PRN Administration Moderate Pain (4-7) - Exam Eye: PERRL, anicteric sclera ENT: normocephalic atraumatic, no oropharyngeal lesions Neck: supple, symmetric, no JVD, no thyromegaly Heart: RRR, no murmur, no gallops Heart - other findings: paced rhythm, pacemaker incision site covered in dressing Respiratory: CTAB, no wheezes, no rales Gastrointestinal: soft, non-tender, non-distended Extremities: no cyanosis, no clubbing, no edema Skin: normal turgor, no lesions Neurological: CN's grossly intact Musculoskeletal: normal tone, normal strength, no muscle wasting Psychiatric: normal affect, normal behavior, A&O x 3 Hosp A/P (1) NSTEMI (non-ST elevated myocardial infarction) Code(s): I21.4 - NON-ST ELEVATION (NSTEMI) MYOCARDIAL INFARCTION Status: Acute (2) CAD (coronary artery disease) Code(s): I25.10 - ATHSCL HEART DISEASE OF [place] CORONARY ARTERY W/O ANG PCTRS Status: Acute (3) S/P arterial stent Code(s): Z95.9 - PRESENCE OF CARDIAC AND VASCULAR IMPLANT AND GRAFT, UNSP Status: Acute (4) Constipation Code(s): K59.00 - CONSTIPATION, UNSPECIFIED Status: Acute (5) S/P cardiac pacemaker procedure Status: Acute - Plan NSTEMI CAD --S/P Heaprin gtt --S/P Cath andstent X 1 to LAD --Now on aspirin statin and Brillinta Constipation: --Miralax Comeplete AV block --temporary trans cutaneous pacemaker initially --Now S/P Pacemkaer on 06/26/19 Possible DC in am
[2019-06-26] MEDS: Carvedilol 3.125 MG TAB PO SCH (16:33)
[2019-06-26] MEDS: HYDROcodone/Acetaminophen 5/325 mg Tablet PO PRN ×2 (16:34→22:24)
--- NOTE | 2019-06-26 19:13 | RAD ---
Chest AP view INDICATION: Post cardiac device placement COMPARISON: June 21, 2019 FINDINGS: Lungs:The lungs are clear Cardiac silhouette:The cardiomediastinal silhouette appears within normal limits. Pulmonary vasculature:Normal Pleural spaces:No pleural effusion or pneumothorax is demonstrated. Upper abdomen:No abnormality seen. Osseous structures: No acute osseous abnormality. Additional findings:There is a dual-lead pacemaker overlying left chest wall. IMPRESSION: 1. No acute cardiopulmonary abnormality. 2. New dual lead pacemaker overlying left chest wall. No pneumothorax.
--- NOTE | 2019-06-26 20:27 | CCL ---
DATE OF SERVICE: 06/24/19 PREPROCEDURE DIAGNOSIS: Complete heart block. POSTPROCEDURE DIAGNOSIS: Complete heart block. PROCEDURE PERFORMED: Insertion of a temporary pacemaker through the right femoral approach. ESTIMATED BLOOD LOSS: 1 mL. COMPLICATION: None. SAMPLES OBTAINED: None. SUMMARY: The patient is a pleasant 54-year-old -[place] female who is admitted for an acute NE. She mast d a stent placed in her LAD and was being monitored postoperatively and went into complete heart bloc k. She has had to be transcutaneously paced so a temporary pacemaker was offered. She was brought down to the Catheterization Lab, prepped and draped in the usual sterile fashion. Con sents were signed and verified. Timeout was performed. Access was obtained with a 5 [place] sheath in the right femoral vein successfully. We then advanced a balloon tipped temporary pacer wire and we advanced it and placed it into the right ventricle into the apex where pacing thresholds were obtaine d successfully pacing her LV. RECOMMENDATIONS: 1. Continue temporary pacemaker. 2. If in the next 24 hours she remains pacemaker dependent, she will need change to a permanent pacemaker. 3. She is to remain flat during this timeframe. May increase her back about 15 to 20 degrees at most.
[2019-06-26] MEDS: Enoxaparin Sodium 40 MG/0.4 ML SYRINGE SC SCH (22:26)
[2019-06-26] MEDS: Atorvastatin Calcium 40 MG TAB PO SCH (22:36)
--- NOTE | 2019-06-27 07:45 | PRG ---
DATE OF SERVICE: 06/26/2019 SUBJECTIVE: Robina Tenorio underwent pacemaker implantation today. OBJECTIVE: GENERAL: She is in no distress. VITAL SIGNS: Blood pressure 119/79, heart rate 78, respiratory rate 14. LUNGS: Clear. HEART: Regular rhythm. S1, S2 are normal. ABDOMEN: Soft and nontender. LABORATORY DATA: No new lab today. IMPRESSION: Complete heart block, status post pacemaker after myocardial infarction and percutaneous intervention. We will follow with the other physicians caring for her until she is transferred out of the Critical . Job ID: [id number]
[2019-06-27] MEDS: Aspirin 81 mg Enteric Coated Tablet PO SCH (08:27)
[2019-06-27] MEDS: Carvedilol 3.125 MG TAB PO SCH (08:28)
[2019-06-27] MEDS: TICAGRELOR 90 MG TABLET PO SCH (08:28)
[2019-06-27] MEDS: Polyethylene Glycol 3350 17 GM Packet PO SCH (08:28)
--- NOTE | 2019-06-27 12:19 | PDOC.CPN ---
- Subjective Date: 06/27/19 Time: 12:27 Interval history: The pt seen and examined. No overnight events. No cardiac complaints. - Objective Allergies/Adverse Reactions: Allergies Allergy/AdvReac Type Severity Reaction Status Date / Time No Known Allergies Allergy Verified 09/05/18 11:47 Visit Medications: Current Medications Acetaminophen (Tylenol) 650 mg PO Q4H PRN PRN Reason: Headache/Fever/Mild Pain (1-3) Last Admin: 06/25/19 07:26 Dose: 650 mg Hydrocodone Bitart/Acetaminophen ([place] 5/325) 1 tab PO Q4H PRN PRN Reason: Mild Pain (1-3) Last Admin: 06/26/19 22:24 Dose: 1 tab Al Hydroxide/Mg Hydroxide (Maalox) 30 ml PO Q6H PRN PRN Reason: Indigestion Aspirin (Ecotrin) 81 mg PO DAILY [facility] Last Admin: 06/27/19 08:27 Dose: 81 mg Atorvastatin Calcium (Lipitor) 40 mg PO HS [facility] Last Admin: 06/26/19 22:36 Dose: 40 mg Carvedilol (Coreg) 3.125 mg PO BID-WM [facility] Last Admin: 06/27/19 08:28 Dose: 3.125 mg Enoxaparin Sodium (Lovenox) 40 mg SC 2100 [facility] Last Admin: 06/26/19 22:26 Dose: 40 mg Sodium Chloride (Normal Saline 0.9%) 1,000 mls @ 100 mls/hr IV .Q10H [facility] Last Admin: 06/26/19 22:27 Dose: 1,000 mls Morphine Sulfate (Morphine) 2 mg SLOW IVP Q5MIN PRN PRN Reason: Chest Pain Last Admin: 06/24/19 11:38 Dose: 2 mg Nitroglycerin (Nitrostat) 0.4 mg SL Q5MIN PRN PRN Reason: Chest Pain Ondansetron HCl (Zofran) 4 mg SLOW IVP Q6H PRN PRN Reason: Nausea/Vomiting Last Admin: 06/24/19 16:55 Dose: 4 mg Pantoprazole Sodium (Protonix) 40 mg PO DAILY [facility] Last Admin: 06/27/19 08:28 Dose: 40 mg Polyethylene Glycol (Miralax) 17 gm PO DAILY [facility] Last Admin: 06/27/19 08:28 Dose: 17 gm Sodium Chloride (Normal Saline Pf) 10 ml FS PRN PRN PRN Reason: RECONSTITUTION Sodium Chloride (Flush - Normal Saline) 10 ml IVF Q12HR [facility] Last Admin: 06/27/19 08:29 Dose: 10 ml Sodium Chloride (Flush - Normal Saline) 10 ml IVF PRN PRN PRN Reason: Saline Flush Ticagrelor (Brilinta) 90 mg PO BID [facility] Last Admin: 06/27/19 08:28 Dose: 90 mg Tramadol HCl (Ultram) 50 mg PO Q6H PRN PRN Reason: Moderate Pain (4-7) Last Admin: 06/26/19 13:03 Dose: 50 mg Vital Signs & Weight: Vital Signs Temp Pulse Pulse Pulse Resp BP BP 06/27/19 11:36 97.9 F 70 18 06/27/19 09:11 78 83 113/64 101/61 06/27/19 08:16 97.9 F 77 16 06/27/19 08:00 BP Pulse Ox Pulse Ox Pulse Ox 06/27/19 11:36 112/72 95 06/27/19 09:11 96 95 06/27/19 08:16 104/78 95 06/27/19 08:00 95 Weight 213 lb - Physical Exam General: alert & oriented x3 Neck: supple neck Cardiac: regular rate and rhythm, S1/S2 Lungs: clear to auscultation Neuro: cranial nerve 2-12 intact Skin: clear Musculoskeletal: normal range of motion - Labs Result Diagrams: 06/25/19 04:53 06/25/19 04:53 Troponin/CKMB CK-MB (CK-2) 134.2 ng/mL (0-6.6) H* 06/22/19 02:54 Troponin I 6.994 ng/mL (< 0.028) H* 06/22/19 02:54 - Telemetry Sinus rhythms and dysrhythmias: other (V paced.) - Assessment/Plan Assessment/Plan: 1. CHB with s/p PM placement on 06/26/2019 - A sense and V pacing; The PM site is SHEEPSKIN PICKLER with no drainage, swelling, or erythema. 2. CAD with s/p ptca/ELIZABETH stent to the LAD, 30% in LAD and 50% in Ramus; stable; on Coreg 3.125mg BID, Brilinta and ASA 81mg. 3. Tobacco abuse strongly recommend smoking cessation. MAR reviewed * From Cardiac standpoint, the pt is stable to d/c home. Brilinta sample with coupon given to the pt today. * The pt will f/u with Dr Jackson' office in 2 wks for the Hospital/PM site check Pt. seen and eval. by me. She denies any cardiac complaints. Chest clear. RRR. I agree with the A/P by the [employer]UR [employer]ANER. melvin
[2019-06-27] MEDS: Sodium Chloride 0.9% 1,000 ML IV SCH (12:46)
[2019-06-27] MEDS: HYDROcodone/Acetaminophen 5/325 mg Tablet PO PRN (13:00)
[2019-06-27 15:43] VITALS: BP 104/59; TEMP 97.4
--- NOTE | 2019-06-28 07:02 | DIS ---
DATE OF ADMISSION: 06/21/2019 DATE OF DISCHARGE: 06/27/2019 PRIMARY CARE PHYSICIAN: Chapincito Llamas MD. CONSULTS DURING HOSPITAL STAY: 1. Cardiology, Gita Jackson MD. 2. Pulmonary Critical Care, Erasmo Daugherty MD. CHIEF COMPLAINT: Chest pain and back pain. DISCHARGE DIAGNOSES: 1. Acute coronary syndrome, status post percutaneous transluminal coronary angioplasty/drug eluting stent to left anterior descending artery. She underwent PTCA drug-eluting stent placement to LAD, was initiated on Coreg, Brilinta and aspirin. 2. Complete heart block status post permanent pacemaker placement, 06/26/2019. 3. Tobacco dependent. HOSPITAL COURSE: Ms. Tenorio is a very pleasant 54-year-old female, with history of gastroesophageal reflux today. She was in her usual state of health until the day of admission around 2:00 p.m. while at work. She had the abrupt onset of pain in her back/shoulder, with accompanying numbness in the left arm, as well as nausea. She became diaphoretic, pain increased in intensity, EMS was contacted. EKG initially with nonspecific ST changes, however, repeat EKG performed during the time of pain showed new right bundle branch block. She was transferred to the ICU for additional evaluation. EKG noted T-wave inversion laterally, new right bundle branch block. CT scan dissection protocol showed no evidence of dissection. She was placed on nitroglycerin, as well as heparin infusion, monitored closely in the CCU. 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 On 06/24/2019, she developed complete heart block, transcutaneous temporary pacing was performed, with subsequent pacemaker dependency noted. She subsequently underwent permanent pacemaker placement on 06/26/2019. Ms. Tenorio is feeling well on the day of discharge. She is seen and evaluated by the Cardiology team, Obedta samples provided to her for which she is very grateful. Subsequently deemed to be stable to discharge. On my exam, the patient is sitting up, has just finished lunch, says she is somewhat sore from her pacemaker, but otherwise well. No nausea or vomiting, tolerating a diet, breathing comfortably. Lungs are clear to auscultation bilaterally. Heart is P/regular. Pacemaker site is clean/dry/intact. She appears stable for transition to the outpatient setting. DISCHARGE INSTRUCTIONS: Diet is heart healthy. MEDICATIONS: 1. Tylenol No. 3 one tab p.o. q.4 hours p.r.n. pain. 2. Atorvastatin 40 mg p.o. at bedtime. 3. Coreg 3.125 mg p.o. twice daily. 4. Aspirin 81 mg p.o. once daily. 5. Omeprazole 40 mg p.o. once daily. 6. Brilinta 90 mg p.o. twice daily. CONDITION ON DISCHARGE: Improved. TIME SPENT: Time spent on discharge, planning/care coordination 50 minutes. Job ID: [id number]
--- NOTE | 2019-06-28 16:30 | EKG ---
Test Reason : Blood Pressure : / mmHG Vent. Rate : 070 BPM Atrial Rate : 091 BPM P-R Int : 000 ms QRS Dur : 160 ms QT Int : 450 ms P-R-T Axes : 068 -66 072 degrees QTc Int : 486 ms Electronic ventricular pacemaker When compared with ECG of 24-JUN-2019 11:04, (Unconfirmed) Electronic ventricular pacemaker has replaced Sinus rhythm Confirmed by DANIEL MORGAN ([id number]) on 06/28/2019 4:29:49 PM Referred By: EDDIE Confirmed By:DANIEL MORGAN
--- NOTE | 2019-06-28 17:08 | EKG ---
Test Reason : Blood Pressure : / mmHG Vent. Rate : 066 BPM Atrial Rate : 066 BPM P-R Int : 180 ms QRS Dur : 178 ms QT Int : 456 ms P-R-T Axes : 064 -65 077 degrees QTc Int : 478 ms Electronic ventricular pacemaker When compared with ECG of 25-JUN-2019 07:52, (Unconfirmed) Vent. rate has decreased BY 4 BPM Confirmed by DANIEL MORGAN ([id number]) on 06/28/2019 5:07:53 PM Referred By: HOWARD Confirmed By:DANIEL MORGAN
== END 2019-06-27 16:40 | disposition home or self-care (01) | DRG 243 ==
LOC: SCSER 15:35 → CCU 17:26 → OBSVTOIN 17:26 → 2NO 06-26 21:24
PROVIDERS: ADMIT Internal Medicine; ATTEND Internal Medicine
PROC: 027034Z Dilation of Coronary Artery, One Artery with Drug-eluting Intraluminal Device, Percutaneous Approach (ICD-10-PCS; principal; 2019-06-22)
PROC: 4A023N7 Measurement of Cardiac Sampling and Pressure, Left Heart, Percutaneous Approach (ICD-10-PCS; 2019-06-22)
PROC: B2111ZZ Fluoroscopy of Multiple Coronary Arteries using Low Osmolar Contrast (ICD-10-PCS; 2019-06-22)
PROC: 5A1223Z Performance of Cardiac Pacing, Continuous (ICD-10-PCS; 2019-06-24)
PROC: 0JH606Z Insertion of Pacemaker, Dual Chamber into Chest Subcutaneous Tissue and Fascia, Open Approach (ICD-10-PCS; 2019-06-26)
PROC: 02HK3JZ Insertion of Pacemaker Lead into Right Ventricle, Percutaneous Approach (ICD-10-PCS; 2019-06-26)
PROC: 02H63JZ Insertion of Pacemaker Lead into Right Atrium, Percutaneous Approach (ICD-10-PCS; 2019-06-26)
DX: I21.A1 Myocardial infarction type 2 (principal); I44.2 Atrioventricular block, complete; K59.00 Constipation, unspecified; I10 Essential (primary) hypertension; I25.10 Atherosclerotic heart disease of native coronary artery without angina pectoris; F17.210 Nicotine dependence, cigarettes, uncomplicated; I45.10 Unspecified right bundle-branch block; K21.9 Gastro-esophageal reflux disease without esophagitis; I95.9 Hypotension, unspecified; I24.9 Acute ischemic heart disease, unspecified
CPT/HCPCS: 33208; 33210; 36005; 36415; 71045; 71275; 75820; 80048; 80053; 80061; 82550; 82553; 83690; 84484; 85025; 85347; 85730; 92928; 93005; 93010; 93458; 93798; 96365; 96375; 99152; 99153; C1769; C1785; C1874; C1887; C1898; C9113; C9600; J0461; J0690; J1265; J1580; J1644; J1650; J1885; J2001; J2250; J2270; J2405; J3010; Q9967

== ENCOUNTER 2019-08-14 09:04 | Emergency (ER) | payer OTHER ==
[2019-08-14 09:43] LABS: #Basophils 0.1 thou/uL (0.0-0.2); #Eosinphils 0.1 thou/uL (0.0-0.7); #Lymphocytes 2.5 thou/uL (1.20-3.40); #Monocytes 0.8 thou/uL (0.11-0.59); #Neutrophils 4.1 thou/uL (1.40-6.50); %Basophils 0.7 % (0.0-1.0); %Eosinophils 1.3 % (0.0-10.0); %Lymphocytes 32.9 % (21.0-51.0); %Monocytes 10.5 % (0.0-10.0); %Neutrophils 54.6 % (42.0-75.0); Hemoglobin 13.9 g/dL (12.0-16.0); Mean Corpuscular Hemoglobin 29.6 pg (27.0-31.0); Mean Corpuscular Volume 89.9 fL (78.0-98.0); Mean Platelet Volume 7.2 fL (7.4-10.4); Platelet Count 297 thou/uL (130-400); RBC Distribution Width 13.1 % (11.5-14.5); White Blood Cell (WBC) Count 7.4 thou/uL (4.8-10.8)
[2019-08-14] MEDS ORDERED: Ketorolac Tromethamine 60 MG/2 ML VIAL ONE (09:59)
[2019-08-14 10:14] LABS: ALT (SGPT) 95 U/L (8-55); AST (SGOT) 33 U/L (5-34); Albumin 3.9 g/dL (3.5-5.0); Alkaline Phosphatase 123 U/L (40-110); Anion Gap 10 mmol/L (10-20); BUN (Urea Nitrogen) 10 mg/dL (9.8-20.1); Bilirubin, Total 1.1 mg/dL (0.2-1.2); CK (CPK) 123 U/L (29-168); Calc. Creatinine Clearance 0 mL/min (70-130); Calcium 9.7 mg/dL (7.8-10.44); Carbon Dioxide 28 mmol/L (22-29); Chloride 103 mmol/L (98-107); Estimated GFR-MDRD 89; Globulin 3.7 g/dL (2.4-3.5); Glucose 95 mg/dL (70-105); Protein, Total 7.6 g/dL (6.0-8.3); Sodium 137 mmol/L (136-145)
[2019-08-14] MEDS ORDERED: Aspirin Chewable 81 MG TAB ONE (10:28)
[2019-08-14 10:35] LABS: CKMB 1.9 ng/mL (0-6.6)
--- NOTE | 2019-08-14 10:36 | RAD ---
EXAM: 2 views of the left hip HISTORY: Left hip pain COMPARISON: None FINDINGS: 2 views of the left hip shows no evidence of acute fracture or dislocation. No degenerative changes are seen. No soft tissue swelling is present. IMPRESSION: No evidence of acute osseous abnormality.
--- NOTE | 2019-08-14 10:47 | RAD ---
Exam: Single view of the pelvis HISTORY: Pelvic and hip pain COMPARISON: None FINDINGS: A single view the pelvis shows no evidence of acute fracture or dislocation. No degenerativ e changes seen in either hip. IMPRESSION: No evidence of acute osseous abnormality.
[2019-08-14 12:47] LABS: Troponin I 0.053 ng/mL (< 0.028)
== END 2019-08-14 13:04 | disposition home or self-care (01) ==
LOC: ERS 09:04
DX: M25.552 Pain in left hip (principal); I25.2 Old myocardial infarction; Z87.891 Personal history of nicotine dependence; Z79.891 Long term (current) use of opiate analgesic; Z79.82 Long term (current) use of aspirin
CPT/HCPCS: 36415; 72170; 80053; 82550; 82553; 84484; 85025; 85652; 86140; 93005; 96372; J1885

== ENCOUNTER 2019-12-30 12:33 | Emergency (ER) | payer OTHER, SELFPAY ==
[2019-12-30] MEDS ORDERED: Ondansetron PF 4 MG/2 ML Vial ONE (13:03)
[2019-12-30 13:15] LABS: Bilirubin Negative (Negative); Blood, Urine Trace (Negative); Clarity Turbid (Clear); Glucose, Urine (Dipstick) Normal (Negative); Leukocyte Negative Leu/uL (Negative); Mucous/LPF 1+ LPF (<2+); Nitrite Negative (Negative); Protein, Urine (Dipstick) 20 mg/dL (Neg-Trace); RBC/HPF 0-3 HPF (0-3); Urobilinogen Normal mg/dL (Less than 2); WBC/HPF 0-3 HPF (0-3)
[2019-12-30 13:23] LABS: Bacteria/HPF 1+ HPF (None Seen)
[2019-12-30 13:58] LABS: #Eosinphils 0.1 thou/uL (0.0-0.7); #Lymphocytes 2.7 thou/uL (1.20-3.40); #Monocytes 0.6 thou/uL (0.11-0.59); #Neutrophils 2.8 thou/uL (1.40-6.50); %Basophils 0.6 % (0.0-1.0); %Eosinophils 1.4 % (0.0-10.0); %Lymphocytes 44.4 % (21.0-51.0); %Neutrophils 44.6 % (42.0-75.0); Hemoglobin 14.1 g/dL (12.0-16.0); Mean Corpuscular Hemoglobin 29.1 pg (27.0-31.0); Mean Corpuscular Volume 88.3 fL (78.0-98.0); Mean Platelet Volume 7.6 fL (7.4-10.4); Platelet Count 312 thou/uL (130-400); RBC Distribution Width 12.9 % (11.5-14.5); Red Blood Cell (RBC) Count 4.85 mill/uL (4.20-5.40); White Blood Cell (WBC) Count 6.2 thou/uL (4.8-10.8)
[2019-12-30 14:44] LABS: ALT (SGPT) 26 U/L (8-55); AST (SGOT) 20 U/L (5-34); Alkaline Phosphatase 158 U/L (40-110); Anion Gap 11 mmol/L (10-20); BUN (Urea Nitrogen) 10 mg/dL (9.8-20.1); Bilirubin, Total 0.9 mg/dL (0.2-1.2); CK (CPK) 208 U/L (29-168); Calc. Creatinine Clearance 0 mL/min (70-130); Calcium 9.7 mg/dL (7.8-10.44); Carbon Dioxide 30 mmol/L (22-29); Chloride 103 mmol/L (98-107); Estimated GFR-MDRD 79; Globulin 3.6 g/dL (2.4-3.5); Glucose 86 mg/dL (70-105); Lipase 16 U/L (8-78); Potassium 4.1 mmol/L (3.5-5.1); Protein, Total 7.6 g/dL (6.0-8.3); Sodium 140 mmol/L (136-145)
== END 2019-12-30 15:41 | disposition home or self-care (01) ==
LOC: ERS 12:33
DX: R11.2 Nausea with vomiting, unspecified (principal); E78.5 Hyperlipidemia, unspecified; E78.00 Pure hypercholesterolemia, unspecified; I25.2 Old myocardial infarction; Z87.891 Personal history of nicotine dependence; Z79.82 Long term (current) use of aspirin; Z79.899 Other long term (current) drug therapy
CPT/HCPCS: 36415; 80053; 81003; 81015; 82550; 83690; 85025; 96361; 96374; J2405

== ENCOUNTER 2020-09-06 00:36 | Emergency (ER) | payer SELFPAY ==
[2020-09-06 01:03] LABS: #Basophils 0.1 thou/uL (0.0-0.2); #Eosinphils 0.1 thou/uL (0.0-0.7); #Lymphocytes 3.3 thou/uL (1.20-3.40); #Monocytes 0.6 thou/uL (0.11-0.59); %Basophils 0.9 % (0.0-1.0); %Eosinophils 1.3 % (0.0-10.0); %Lymphocytes 46.4 % (21.0-51.0); %Neutrophils 42.4 % (42.0-75.0); Hemoglobin 13.1 g/dL (12.0-16.0); Mean Corpuscular HGB CONC 32.9 g/dL (32.0-36.0); Mean Corpuscular Hemoglobin 28.5 pg (27.0-31.0); Mean Corpuscular Volume 86.8 fL (78.0-98.0); Mean Platelet Volume 7.6 fL (7.4-10.4); Platelet Count 272 thou/uL (130-400); RBC Distribution Width 13.4 % (11.5-14.5); Red Blood Cell (RBC) Count 4.58 mill/uL (4.20-5.40); White Blood Cell (WBC) Count 7.2 thou/uL (4.8-10.8)
[2020-09-06 01:27] LABS: ALT (SGPT) 27 U/L (8-55); AST (SGOT) 19 U/L (5-34); Albumin 3.6 g/dL (3.5-5.0); Alkaline Phosphatase 141 U/L (40-110); Anion Gap 11 mmol/L (10-20); BUN (Urea Nitrogen) 10 mg/dL (9.8-20.1); Bilirubin, Total 0.7 mg/dL (0.2-1.2); Calc. Creatinine Clearance 0 mL/min (70-130); Calcium 9.1 mg/dL (7.8-10.44); Carbon Dioxide 29 mmol/L (22-29); Chloride 104 mmol/L (98-107); Globulin 3.8 g/dL (2.4-3.5); Glucose 103 mg/dL (70-105); Potassium 3.6 mmol/L (3.5-5.1); Protein, Total 7.4 g/dL (6.0-8.3); Sodium 140 mmol/L (136-145)
--- NOTE | 2020-09-06 09:21 | RAD ---
CHEST 1 VIEW: Date: 09/06/2020 INDICATION: Hematemesis. COMPARISON: Prior exam dated 06/26/2019. FINDINGS: The heart size is mildly prominent, but stable. Pacemaker is unchanged. No acute air space opacity, p leural effusion, or pneumothorax evident. No acute osseous abnormality is evident. IMPRESSION: No acute abnormality. POS: BH
--- NOTE | 2020-09-13 13:13 | EKG ---
Test Reason : Blood Pressure : / mmHG Vent. Rate : 063 BPM Atrial Rate : 063 BPM P-R Int : 198 ms QRS Dur : 130 ms QT Int : 436 ms P-R-T Axes : 029 005 -20 degrees QTc Int : 446 ms Atrial-paced rhythm Right bundle branch block Septal infarct , age undetermined Abnormal ECG Confirmed by YAIR ALLISON ([id number]), commissioning editor MAGDA MITCHELL ([id number]) on 09/13/2020 1:13:02 PM Referred By: Confirmed By:YAIR ALLISON
== END 2020-09-06 03:37 | disposition home or self-care (01) ==
LOC: ERS 00:36
DX: R04.2 Hemoptysis (principal); E78.5 Hyperlipidemia, unspecified; E78.00 Pure hypercholesterolemia, unspecified; I25.2 Old myocardial infarction; G47.30 Sleep apnea, unspecified; Z79.82 Long term (current) use of aspirin; Z79.899 Other long term (current) drug therapy
CPT/HCPCS: 36415; 71045; 80053; 83880; 84484; 85025; 93005

== ENCOUNTER 2021-02-09 10:48 | Outpatient (CLI) | payer OTHER | END 2021-02-09 10:49 | disposition home or self-care (01) | LOC: BICRAD 10:48 | PROVIDERS: ATTEND Internal Medicine | DX: Z02.71 Encounter for disability determination (principal); M18.11 Unilateral primary osteoarthritis of first carpometacarpal joint, right hand; M47.816 Spondylosis without myelopathy or radiculopathy, lumbar region | CPT/HCPCS: 72100 ==

== ENCOUNTER 2022-04-02 09:52 | Outpatient (CLI) | payer MEDICARE | END 2022-04-02 09:53 | disposition home or self-care (01) | LOC: SCSRAD 09:52 | PROVIDERS: ATTEND Family Medicine | DX: M79.672 Pain in left foot (principal); M19.072 Primary osteoarthritis, left ankle and foot ==

== ENCOUNTER 2022-12-20 08:58 | Emergency (ER) | payer MEDICARE ==
[~2022-12-20 08:58] MED LIST changes: -Iopamidol 370 76% 100 ML VIAL ONE; +Iopamidol-370 76% 500 ML 1 ML ONE
[2022-12-20 09:35] LABS: #Basophils 0.1 thou/uL (0.0-0.2); #Eosinphils 0.1 thou/uL (0.0-0.7); #Lymphocytes 2.5 thou/uL (1.20-3.40); #Monocytes 0.6 thou/uL (0.11-0.59); #Neutrophils 3.8 thou/uL (1.40-6.50); %Basophils 0.7 % (0.0-1.0); %Eosinophils 0.8 % (0.0-10.0); %Lymphocytes 35.3 % (21.0-51.0); %Monocytes 9.1 % (0.0-10.0); %Neutrophils 54.1 % (42.0-75.0); Hemoglobin 14.1 g/dL (12.0-16.0); Mean Corpuscular HGB CONC 32.9 g/dL (32.0-36.0); Mean Corpuscular Hemoglobin 29.3 pg (27.0-31.0); Mean Corpuscular Volume 88.9 fl (78.0-98.0); Mean Platelet Volume 7.4 fL (7.4-10.4); Platelet Count 267 10x3/uL (130-400); RBC Distribution Width 13.8 % (11.5-14.5); Red Blood Cell (RBC) Count 4.82 mill/uL (4.20-5.40); White Blood Cell (WBC) Count 7.1 10x3/uL (4.8-10.8)
[2022-12-20 09:54] LABS: ALT (SGPT) 40 U/L (8-55); AST (SGOT) 25 U/L (5-34); Alkaline Phosphatase 120 U/L (40-110); Anion Gap 12 mmol/L (10-20); BUN (Urea Nitrogen) 8 mg/dL (9.8-20.1); Bilirubin, Total 1.3 mg/dL (0.2-1.2); Calc. Creatinine Clearance 0 mL/min (70-130); Calcium 9.3 mg/dL (7.8-10.44); Carbon Dioxide 26 mmol/L (22-29); Chloride 105 mmol/L (98-107); Estimated GFR 63; Globulin 3.9 g/dL (2.4-3.5); Glucose 92 mg/dL (70-105); Lipase 13 U/L (8-78); Potassium 4.2 mmol/L (3.5-5.1); Protein, Total 7.9 g/dL (6.0-8.3); Sodium 139 mmol/L (136-145)
[2022-12-20] MEDS ORDERED: Ketorolac Tromethamine 30 MG/ML VIAL ONE (10:01)
[2022-12-20 12:35] LABS: Bilirubin Negative (Negative); Blood, Urine Negative (Negative); Clarity Clear (Clear); Glucose, Urine (Dipstick) Normal (Negative); Ketone, Urine Negative (Negative); Leukocyte Negative Leu/uL (Negative); Nitrite Negative (Negative); Protein, Urine (Dipstick) Negative (Neg-Trace); Specific Gravity, Urine 1.044 (1.002-1.036); Urobilinogen Normal mg/dL (Less than 2); pH, Urine 5.5 (5.0-9.0)
[2022-12-20] MEDS ORDERED: Dicyclomine 20 MG TAB ONE (13:38)
== END 2022-12-20 13:41 | disposition home or self-care (01) ==
LOC: ERS 08:58
DX: R10.819 Abdominal tenderness, unspecified site (principal); E78.00 Pure hypercholesterolemia, unspecified; Z79.82 Long term (current) use of aspirin; Z79.899 Other long term (current) drug therapy
CPT/HCPCS: 36415; 74177; 80053; 81003; 83690; 85025; 96374; J1885; Q9967

== ENCOUNTER 2023-08-07 14:29 | Emergency (ER) | payer MEDICARE ==
[2023-08-07 14:52] LABS: #Monocytes 0.7 thou/uL (0.11-0.59); #Neutrophils 1.7 thou/uL (1.40-6.50); %Basophils 0.4 % (0.0-1.0); %Lymphocytes 48.3 % (21.0-51.0); %Monocytes 14.2 % (0.0-10.0); %Neutrophils 36.9 % (42.0-75.0); Hematocrit 46.1 % (36.0-47.0); Hemoglobin 15.5 g/dL (12.0-16.0); Mean Corpuscular HGB CONC 33.6 g/dL (32.0-36.0); Mean Corpuscular Hemoglobin 28.8 pg (27.0-31.0); Mean Corpuscular Volume 85.5 fl (78.0-98.0); Platelet Count 238 10x3/uL (130-400); RBC Distribution Width 14.6 % (11.5-14.5); Red Blood Cell (RBC) Count 5.39 mill/uL (4.20-5.40); White Blood Cell (WBC) Count 4.7 10x3/uL (4.8-10.8)
[2023-08-07 15:10] LABS: ALT (SGPT) 43 U/L (8-55); AST (SGOT) 32 U/L (5-34); Albumin 4.7 g/dL (3.5-5.0); Alkaline Phosphatase 100 U/L (40-110); Anion Gap 17 mmol/L (10-20); BUN (Urea Nitrogen) 12 mg/dL (9.8-20.1); Bilirubin, Total 1.1 mg/dL (0.2-1.2); Calc. Creatinine Clearance 0 mL/min (70-130); Calcium 9.8 mg/dL (7.8-10.44); Carbon Dioxide 28 mmol/L (22-29); Chloride 96 mmol/L (98-107); Estimated GFR 56; Globulin 4.1 g/dL (2.4-3.5); Glucose 90 mg/dL (70-105); Potassium 3.8 mmol/L (3.5-5.1); Protein, Total 8.8 g/dL (6.0-8.3); Sodium 137 mmol/L (136-145)
[2023-08-07 15:14] LABS: Troponin I Less than 0.010 ng/mL (< 0.028)
[2023-08-07 16:02] LABS: SARS-CoV-2 NAA Rapid Test Not Detected (NotDetected)
== END 2023-08-07 17:34 | disposition home or self-care (01) ==
LOC: ERS 14:29
DX: J10.1 Influenza due to other identified influenza virus with other respiratory manifestations (principal); Z20.822 Contact with and (suspected) exposure to COVID-19; E78.00 Pure hypercholesterolemia, unspecified; Z79.82 Long term (current) use of aspirin; Z79.899 Other long term (current) drug therapy
CPT/HCPCS: 0240U; 71045; 80053; 83605; 83880; 84484; 85025; 85379; 86140; 93005

== ENCOUNTER 2025-10-18 07:40 | Emergency (ER) | payer MEDICARE ==
[2025-10-18] MEDS ORDERED: Ibuprofen 200 MG TAB ONE (10:31)
[2025-10-18 10:48] LABS: #Basophils 0.03 10x3/uL (0.0-0.2); #Eosinophils 0.09 10x3/uL (0.0-0.7); #Monocytes 0.46 10x3/uL (0.11-0.59); #Neutrophils 2.53 10x3/uL (1.40-6.50); %Basophils 0.5 % (0.0-1.0); %Eosinophils 1.6 % (0.0-10.0); %Lymphocytes 43.0 % (21.0-51.0); %Monocytes 8.4 % (0.0-10.0); %Neutrophils 46.3 % (42.0-75.0); Hematocrit 44.2 % (36.0-47.0); Hemoglobin 14.3 g/dL (12.0-16.0); Mean Corpuscular Hemoglobin 27.7 pg (27.0-31.0); Mean Corpuscular Volume 85.5 fL (78.0-98.0); Platelet Count 294 10x3/uL (130-400); Red Blood Cell (RBC) Count 5.17 mill/uL (4.20-5.40); White Blood Cell (WBC) Count 5.47 10x3/uL (4.8-10.8)
[2025-10-18 11:03] LABS: ALT (SGPT) 31 U/L (Less than 34); AST (SGOT) 30 U/L (11-34); Albumin 4.3 g/dL (3.1-4.5); Alkaline Phosphatase 127 U/L (40-110); Anion Gap 14 mmol/L (10-20); BUN (Urea Nitrogen) 13 mg/dL (9.8-20.1); Bilirubin, Total 1.4 mg/dL (0.3-1.2); Calc. Creatinine Clearance 0 mL/min (70-130); Calcium 9.9 mg/dL (7.8-10.44); Carbon Dioxide 27 mmol/L (22-29); Chloride 104 mmol/L (98-107); Globulin 3.9 g/dL (2.4-3.5); Glucose 83 mg/dL (70-105); Potassium 4.0 mmol/L (3.5-5.1); Sodium 141 mmol/L (136-145)
== END 2025-10-18 12:34 | disposition home or self-care (01) ==
LOC: ERS 07:40
DX: R07.89 Other chest pain (principal); I10 Essential (primary) hypertension; E78.00 Pure hypercholesterolemia, unspecified; I25.2 Old myocardial infarction; Z79.82 Long term (current) use of aspirin; Z79.4 Long term (current) use of insulin
CPT/HCPCS: 71045; 80053; 84484; 85025; 93005